=== PATIENT | female | born 1970 | race Caucasian/White ===

== ENCOUNTER 2019-01-19 11:06 | Emergency (ER) | payer OTHER ==
[~2019-01-19] VITALS: Ht 152.4 cm; Wt 90.0 kg
[2019-01-19] MEDS ORDERED: ALLE180T33 PO (11:29)
[2019-01-19] MEDS ORDERED: CLAR10CA3 PO (11:29)
--- NOTE | 2019-01-19 13:00 | REP ---
Chest x-ray: Two views. History: Cough and shortness of breath. Findings: There is minimal bibasilar linear opacity consistent with plate-like atelectasis versus fibrosis. No definite infiltrate. Pleural angles are sharp. Heart size is normal. Pulmonary vasculature is not increased. Impression: Bibasilar linear opacities consistent with plate-like atelectasis versus scarring. No definite infiltrate. Electronically Signed by Rob Scott MD 01/19/2019 08:08 P
[2019-01-19] MEDS ORDERED: PRED20TA PO (13:30)
[2019-01-19] MEDS ORDERED: AZIT-12 PO (13:30)
[2019-01-19 13:42] VITALS: BP 123/67
== END 2019-01-19 13:44 | disposition home or self-care (01) ==
LOC: M ED 11:06
DX: J40 Bronchitis, not specified as acute or chronic (principal); J18.9 Pneumonia, unspecified organism; Z79.899 Other long term (current) drug therapy; Z88.5 Allergy status to narcotic agent; Z87.891 Personal history of nicotine dependence